=== PATIENT | male | born 1965 | race Caucasian/White ===

== ENCOUNTER 2018-01-20 07:15 | Inpatient (IN) | payer BC ==
[2018-02-12] MEDS ORDERED: GABAPENTIN 300 MG CAP PO ONE (06:11)
[2018-02-12] MEDS ORDERED: ceFAZolin 2 GM/DEXTROSE 100 ML IV ONE (06:11)
[2018-02-12] MEDS ORDERED: ACETAMINOPHEN 500 MG TAB PO ONE (06:11)
[2018-02-12] MEDS ORDERED: LR 1,000 ML IV ONE (06:12)
[2018-02-12] MEDS ORDERED: LIDOCAINE 1% 2 ML INJ ID PRN (06:12)
--- NOTE | 2018-02-12 06:29 | PDHPUP ---
History & Physical Update H&P update statement: This history and physical update is based on an assessment of the patient which was completed after admission or registration (within 24 hours), but prior to the surgery/procedure. H&P update: H&P reviewed & patient examined, no change in patient's condition since H&P completed
[2018-02-12] MEDS ORDERED: GABAPENTIN 300 MG CAP ONE (06:32)
[2018-02-12] MEDS ORDERED: ACETAMINOPHEN 500 MG TAB ONE (06:32)
[2018-02-12] MEDS ORDERED: MIDAZOLAM 2 MG/2 ML VIAL IVP ONE (07:10)
--- NOTE | 2018-02-12 07:11 | PDANEPAE ---
ANE Past Medical History - Cardiovascular History Hx Hypertension: Yes Hx Arrhythmias: No Hx Chest Pain: No Hx Coronary Artery / Peripheral Vascular Disease: Yes Hx CHF / Valvular Disease: No Hx Palpitations: No Cardiovascular History Comment: [place] 05/2010. STENT - Pulmonary History Hx COPD: No Hx Asthma/Reactive Airway Disease: No Hx Recent Upper Respiratory Infection: No Hx Oxygen in Use at Home: No Hx Sleep Apnea: No Sleep Apnea Screening Result - Last Documented: Positive - Neurologic History Hx Cerebrovascular Accident: No Hx Seizures: No Hx Dementia: No - Endocrine History Hx Diabetes: No - Renal History Hx Renal Disorders: No - Liver History Hx Hepatic Disorders: No - Neurological & Psychiatric Hx Hx Neurological and Psychiatric Disorders: No - Cancer History Hx Cancer: No - Congenital Disorder History Hx Congenital Disorders: No - GI History Hx Gastrointestinal Disorders: No - Other Health History Other Health History: RT SHLDR TORN RTC - Chronic Pain History Chronic Pain: Yes (CERVICAL NECK AND RT ARM) - Surgical History Prior Surgeries: CERVICAL FUSION. LT SHLDR SCOPE RTC/LABRUM/BICEP ANE Review of Systems Review of Systems: - Exercise capacity METS (RN): 4 METS ANE Patient History - Allergies Allergies/Adverse Reactions: Penicillins Allergy (Verified 02/12/18 07:05) Hives - Home Medications Home Medications: Amitriptyline HCl HS 12/18/17 [Last Taken 02/05/18] Atorvastatin Calcium DAILY 12/18/17 [Last Taken 02/12/18] Metoprolol Tartrate DAILY 12/18/17 [Last Taken 02/12/18] Paxil DAILY 12/18/17 [Last Taken 02/12/18] - NPO status NPO Since - Liquids (Date): 02/11/18 NPO Since - Liquids (Time): 19:00 NPO Since - Solids (Date): 02/11/18 NPO Since - Solids (Time): 19:00 - Smoking Hx Smoking Status: Former smoker ANE Labs/Vital Signs - Labs Result Diagrams: 02/12/18 06:55 - Vital Signs Blood Pressure: 145/86 Heart Rate: 59 Respiratory Rate: 15 O2 Sat (%): 95 Height: 180.34 cm Weight: 124.738 kg ANE Physical Exam - Airway Neck exam: decreased ROM Mallampati Score: Class 2 Mouth exam: normal dental/mouth exam - Pulmonary Pulmonary: no respiratory distress - Cardiovascular Cardiovascular: regular rate and rhythym - ASA Status ASA Status: III ANE Anesthesia Plan Anesthesia Plan: general endotracheal anesthesia
[2018-02-12] MEDS ORDERED: THROMBIN (BOVINE) 5,000 UNIT VIAL TP ONE (07:12)
[2018-02-12] MEDS ORDERED: BUPIVACAINE/EPI 0.25% 30 ML SDV ONE (07:12)
[2018-02-12] MEDS ORDERED: BACITRACIN 50,000 UNITS/10 ML SYR IRR ONE (07:12)
[2018-02-12 07:17] LABS: PLATELET COUNT 162 10^3/uL (150-400)
[2018-02-12] MEDS ORDERED: PROPOFOL/EMULSION 500 MG/50 ML BOTTLE IV ONE ×3 (07:18→09:30)
[2018-02-12] MEDS ORDERED: REMIFENTANIL HCL 1 MG VIAL ONE (07:19)
[2018-02-12] MEDS ORDERED: fentaNYL 250 MCG/5 ML INJ ONE (07:19)
[2018-02-12] MEDS ORDERED: CHLORHEXIDINE GLUC HIBICLENS 118 ML BTL TP ONE (07:53)
[2018-02-12] MEDS ORDERED: fentaNYL 100 MCG/2 ML INJ ONE ×3 (08:02→11:38)
[2018-02-12] MEDS ORDERED: GLYCOPYRROLATE 0.2 MG/1 ML VIAL ONE (08:10)
[2018-02-12] MEDS ORDERED: EPINEPHrine 1 MG/ML INJ ONE (09:26)
[2018-02-12] MEDS ORDERED: BUPIVACAINE 0.25% 30 ML SDV ONE (09:26)
[2018-02-12] MEDS ORDERED: REMIFENTANIL HCL 2 MG VIAL ONE (09:29)
[2018-02-12] MEDS ORDERED: PROPOFOL 200 MG/20 ML VIAL ONE (09:31)
[2018-02-12] MEDS ORDERED: ceFAZolin 1 GM VIAL ONE (10:24)
[2018-02-12] MEDS ORDERED: THROMBIN (BOVINE) 20,000 UNIT SPRAY TP ONE (10:35)
[2018-02-12] MEDS ORDERED: ePHEDrine SULFATE 25 MG/5 ML SYR ONE (10:37)
[2018-02-12] MEDS ORDERED: PROMETHAZINE HCL 25 MG/ML INJ IVP PRN (11:08)
[2018-02-12] MEDS ORDERED: LABETALOL HCL 5 MG/ML 20 ML MDV IVP PRN (11:08)
[2018-02-12] MEDS ORDERED: NALOXONE HCL 0.4 MG/ML INJ IVP PRN ×2 (11:08→11:15)
[2018-02-12] MEDS ORDERED: LR 500 ML IV PRN (11:08)
[2018-02-12] MEDS ORDERED: ONDANSETRON 4 MG/2 ML VIAL IVP PRN ×2 (11:08→11:15)
[2018-02-12] MEDS ORDERED: DEXAMETHASONE 4 MG/ML VIAL ONE (11:09)
[2018-02-12] MEDS ORDERED: ONDANSETRON 4 MG/2 ML VIAL ONE (11:09)
[2018-02-12] MEDS ORDERED: ONDANSETRON DISINTEGRATING 4 MG TAB PO PRN (11:15)
[2018-02-12] MEDS ORDERED: LACTULOSE 20 GM/30 ML UDCUP PO PRN (11:15)
[2018-02-12] MEDS ORDERED: morphINE PCA 30 MG/30 ML PCA IV PRN (11:15)
[2018-02-12] MEDS ORDERED: diphenhydrAMINE 25 MG CAP PO PRN (11:15)
[2018-02-12] MEDS ORDERED: BISACODYL 10 MG SUPP PR PRN (11:15)
[2018-02-12] MEDS ORDERED: MAGNESIUM HYDROXIDE 30 ML UDCUP PO PRN (11:15)
[2018-02-12] MEDS ORDERED: NS 1,000 ML IV SCH (11:15)
--- NOTE | 2018-02-12 11:23 | GOP ---
DATE OF OPERATION: 02/12/2018 SURGEON: Sam Amaral MD NEUROSURGEON: Sam Amaral MD. AND DRYING SUPERVISOR COOKING CASING: Sage Murillo PA-C. ANESTHESIA: General endotracheal. 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 Possible C6-7 pse udoarthrosis. POSTOPERATIVE DIAGNOSIS: Severe cervical spondylitic myelopathy with C5-6 adjacent level degeneratio n and disk space collapse with spinal canal compromise and spinal cord compression. Possible C6-7 ps eudoarthrosis. PROCEDURE PERFORMED: Removal of C6-7 anterior cervical plate with C5-6 complete anterior cervical di skectomy and arthrodesis with a 12 mm structural PEEK interbody spacer and local autograft. Placemen t of a C5 through C7 anterior cervical plate. Exploration of spinal fusion, C6-7. FINDINGS: ESTIMATED BLOOD LOSS: Trace. INDICATIONS: The patient is a 52-year-old man who underwent a C6-7 anterior cervical diskectomy and arthrodesis with plating approximately 10 months ago who has severe adjacent level degeneration, iliana l compromise, spinal cord compression, and progressive myelopathic signs on clinical examination. He presents now for surgical decompression and stabilization at the adjacent level and removal of the p late at C6-7 with exploration of the spinal fusion. DESCRIPTION OF PROCEDURE: After informed consent was obtained, the patient was taken to the operatin g room and placed in the supine position with the head in the halter retractor system. The anterior cervical region was prepped and draped in a sterile fashion. After fluoroscopic localization of the correct level, the subcutaneous and intramuscular tissues were infiltrated with local anesthesia. A prior horizontal incision was carefully opened and carried down to the platysmal layer, which was the n incised using monopolar electrocautery and carried in the avascular plane between the sternocleidom astoid and carotid sheath laterally and the strap muscles, trachea, and esophagus medially down to th e prevertebral fascia, which was carefully incised with Metzenbaum scissors. The C5-6 and C6-7 inter spaces were identified and re-verified using intraoperative fluoroscopy. The C6-7 plate was carefull y removed, and the rostral screws were noted to be loose. A Herrera was used to carefully manipulate th e interspace, and it appeared to have some slight movement consistent with an early pseudoarthrosis. I felt that it was safer for the patient to leave that in place and perform a posterior cervical fus ion after completing this anterior part. The distraction pins were inserted in the C5-6 level, and t he osteophytes removed and harvested for local autograft. A complete diskectomy was then performed w ith preparation of the endplates and removal of posterior longitudinal ligament. Bilateral foraminot omies were performed, and meticulous hemostasis was achieved. The posterior osteophytes were also re moved along with the disk in order to thoroughly decompressed the canal. The wound was then copiousl y irrigated, and after preparation of the endplates, a 12 mm structural PEEK interbody spacer packed with local autograft in the center was placed under fluoroscopic image guidance at the C5-6 level. T he distraction was removed, and an appropriately sized 41 mm LnK CastleLoc-P anterior cervical plate was then placed and secured from C5 through C7 with self-drilling screws. Following re-verification of good position of the plate screws and interbody spacers using biplanar fluoroscopy, a drain was pl aced. The subcutaneous and intramuscular tissues were re-infiltrated with local anesthesia, and the wound was closed in a layered fashion using interrupted Vicryl suture, followed by Steri-Strips on th e skin. The patient was repositioned for the posterior portion of the operation. COMPLICATIONS: None. /[id number]/MODL
--- NOTE | 2018-02-12 11:32 | PDMN ---
Medical Necessity Medical necessity: MCG: S330 posterior cervical fusion 2 days: OP: C5/6 ACDF , with Posterior fusion , exploration of C6/7 spinal fusion surg fax scanned : (1 day) for CPT 82369, 63491, 24657, 46849, 53614, [id number], 28624
--- NOTE | 2018-02-12 11:33 | GOP ---
DATE OF OPERATION: 02/12/2018 SURGEON: Sam Amaral MD NEUROSURGEON: Sam Amaral MD. APPLE PRESS OPERATOR: MISAEL Wills. ANESTHESIA: General endotracheal. 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 Possible C6-7 pseudoarthrosis. 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 Possible C6-7 pseudoarthrosis. PROCEDURE PERFORMED: C5 through C7 posterior segmental (lateral mass screw) fixation with C5 through C7 posterolateral fusion with local autograft and bone morphogenic protein. Use of intraoperative microscopy, fluoroscopy, and intraoperative neurophysiologic testing. FINDINGS: ESTIMATED BLOOD LOSS: Trace. INDICATIONS: The patient is a 52-year-old man who underwent a C6-7 anterior cervical diskectomy and arthrodesis with plating approximately 10 months ago who has severe adjacent level degeneration, canal compromise, spinal cord compression, and progressive myelopathic signs on clinical examination. He presents now for surgical decompression and stabilization at the adjacent level and removal of the plate at C6-7 with exploration of the spinal fusion. DESCRIPTION OF PROCEDURE: After the anterior portion of procedure was completed , the patient was repositioned prone with the head in the [place] balling head tender. The posterior cervical region was prepped and draped in a sterile fashion. After fluoroscopic localization of the correct levels as best we could given the patients body habitus the subcutaneous and intramuscular tissues were infiltrated with local anesthesia. A midline linear incision was then created from approximately C5 through C7. This was carried down to the fascial layer, which was then incised using monopolar electrocautery and carried to the subcostal plane along the spinous processes and out the lamina bilaterally. Following re-verification of the correct levels as best we could, dissection was carried out over the facet joints. Note that this patient is a very large man with a huge neck and we utilized multiple angles to verify the levels as best we could as well as using the stiffness of the segments given that C5-7 had a plate anteriorly already. The facets were drilled out at C5-6 and C6-7 and mass screw fixation was placed at the C5, C6, and C7 levels bilaterally. Each individual screw was tested neurophysiologically with monopolar electrostimulation and interpretation of the potentials by the surgeon. Following this, verification of good position was performed using biplanar fluoroscopy. It was again extremely difficult to visualize anything but we did the best we could and even though I was not 100% confident of good screw placement I thought it in the patient's best interest to leave the screws as they were. The rods were then placed and secured. The lamina and facet joints were thoroughly drilled out, and the local autograft along with bone morphogenic protein was placed out laterally for a posterolateral fusion from C5 through C7. A drain was placed. The subcutaneous and intramuscular tissues were re-infiltrated with local anesthesia, and the wound was closed in a layered fashion using interrupted Vicryl sutures followed by Steri-Strips on the skin. COMPLICATIONS: None. DISPOSITION: The patient is currently in the process of being repositioned for extubation. /[id number]/MODL MTDD
[2018-02-12] MEDS ORDERED: LABETALOL HCL 5 MG/ML 20 ML MDV ONE (11:38)
[2018-02-12] MEDS: fentaNYL 100 MCG/2 ML INJ IVP PRN ×2 (11:43→11:48)
--- NOTE | 2018-02-12 11:49 | POSTANESTH ---
Post Anesthetic Evaluation Cardiovascular Status: Normal, Stable Respiratory Status: Normal, Stable Level of Consciousness/Mental Status: Can Participate in Eval Pain Control: Adequate, Prn Tx Ordered Nausea/Vomiting Control: Adequate, Prn Tx Ordered Complications Possibly Related to Anesthesia: None Noted
--- NOTE | 2018-02-12 12:03 | SOAPPROG ---
SOAP Progress Note Assessment/Plan: Assessment: 52 yo M sp C6/7 plate removal, C5/6 ACDF with C5-7 plating, C5-7 posterior cervical fusion Plan: stable to 3N hard collar PT/OT please call with neuro changes 02/12/18 12:01 Subjective: + neck pain, no arm pain Objective: Vital Signs Temp Pulse Resp BP Pulse Ox 37.0 C 59 L 15 145/86 H 95 02/12/18 06:15 02/12/18 07:10 02/12/18 07:10 02/12/18 07:10 02/12/18 07:10 Laboratory Results 02/12/18 06:55 somnolent PERRL, EOMI 5/5 + light touch ICD10 Worksheet Patient Problems: Problems Problem Status Onset Fusion of spine of cervical region Acute - ICD10 Problem Qualifiers (1) Fusion of spine of cervical region
[2018-02-12] MEDS ORDERED: METHOCARBAMOL 750 MG TAB ONE (12:20)
[2018-02-12] MEDS: METHOCARBAMOL 750 MG TAB PO PRN ×3 (12:20→22:27)
[2018-02-12] MEDS ORDERED: oxyCODONE IR 5 MG TAB ONE (12:26)
[2018-02-12] MEDS: oxyCODONE IR 5 MG TAB PO PRN ×4 (12:27→22:28)
[2018-02-12] MEDS: ceFAZolin 2 GM/DEXTROSE 100 ML IV SCH ×2 (13:20→21:34)
[2018-02-12] MEDS: POLYETHYLENE GLYCOL 3350 17 GM PKT PO SCH ×2 (16:16→21:33)
[2018-02-12] MEDS: AMITRIPTYLINE HCL 10 MG TAB PO SCH (21:31)
[2018-02-12] MEDS: METOPROLOL TARTRATE 25 MG TAB PO SCH (21:31)
[2018-02-12] MEDS: SENNOSIDES/DOCUSATE SODIUM TAB PO SCH (21:31)
[2018-02-12] MEDS: FAMOTIDINE 20 MG TAB PO SCH (21:33)
[2018-02-13] MEDS: oxyCODONE IR 5 MG TAB PO PRN ×4 (02:40→18:51)
[2018-02-13] MEDS: METHOCARBAMOL 750 MG TAB PO PRN ×3 (04:42→20:59)
[2018-02-13 06:26] LABS: PLATELET COUNT 163 10^3/uL (150-400)
--- NOTE | 2018-02-13 07:49 | NEUSURGPN ---
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 at bedside. Snored a lot overnight which is unusual for him Objective: AAOx3 NAD VSS MAEx4 Motor 5/ BUE Incisions dressed cdi KIMBERLY in place Urinary Catheter in Place: No - Physician Discussed Patient with : Munir Patient Seen by : Munir Neurosurgery Physical Exam - Vitals, I&O, Labs I and O 02/12/18 02/13/18 02/14/18 05:59 05:59 05:59 Intake Total 3105 Output Total 4440 Balance -1335 Weight 124.738 kg Intake: Oral (ml) 1000 IV Intake (ml) 2000 IV Infused (ml) 105 ceFAZolin 2 GM/DEXTROSE 105 100 ml @ 200 mls/hr IV Q8HRS [facility] Rx#:[id number] Output: Urine (ml) 4100 Urinal 4100 Estimated Blood Loss (ml) 300 KIMBERLY Drain Output (ml) 40 #1 Left Anterior Neck 40 Other: Intake Quantity Yes Sufficient Number of Voids Urinal 1 Vital Signs Temp Pulse Resp BP Pulse Ox 36.8 C 76 14 145/73 H 90 L 02/13/18 07:43 02/13/18 07:43 02/13/18 07:43 02/13/18 07:43 02/13/18 07:43 Laboratory Results 02/13/18 04:54 02/13/18 04:54 ICD10 Worksheet Patient Problems: Problems Problem Status Onset Fusion of spine of cervical region Acute
[2018-02-13] MEDS: PARoxetine HCL 20 MG TAB PO SCH (08:57)
[2018-02-13] MEDS: SENNOSIDES/DOCUSATE SODIUM TAB PO SCH ×2 (08:57→20:58)
[2018-02-13] MEDS: ATORVASTATIN CALCIUM 10 MG TAB PO SCH (08:57)
[2018-02-13] MEDS: POLYETHYLENE GLYCOL 3350 17 GM PKT PO SCH ×3 (08:57→20:58)
[2018-02-13] MEDS: FAMOTIDINE 20 MG TAB PO SCH ×2 (08:57→20:59)
[2018-02-13] MEDS: METOPROLOL TARTRATE 25 MG TAB PO SCH ×2 (08:58→21:01)
[2018-02-13] MEDS: DIAZEPAM 5 MG TAB PO PRN ×2 (10:10→17:54)
--- NOTE | 2018-02-13 12:13 | ASMTCMCOM ---
CM Note CM Note Notes: Met with patient and family to review any d/c needs. Patient is well prepared for his d/c home. They have all needed DME - will be around to assist with needs. They decline the need for HHC at this time. Explained that CM is available should something change. Therapy has cleared patient for home. Plan: Likely home independent. Date Signed: 02/13/2018 11:56 AM Electronically Signed By:Mary Martinez RN
[2018-02-13] MEDS: AMITRIPTYLINE HCL 10 MG TAB PO SCH (20:59)
[2018-02-14] MEDS: DIAZEPAM 5 MG TAB PO PRN ×2 (00:07→21:07)
[2018-02-14] MEDS: oxyCODONE IR 5 MG TAB PO PRN ×4 (03:22→17:58)
[2018-02-14] MEDS: METHOCARBAMOL 750 MG TAB PO PRN ×5 (03:27→23:39)
[2018-02-14] MEDS: METOPROLOL TARTRATE 25 MG TAB PO SCH ×2 (09:00→21:06)
[2018-02-14] MEDS: SENNOSIDES/DOCUSATE SODIUM TAB PO SCH ×2 (09:01→21:52)
[2018-02-14] MEDS: PARoxetine HCL 20 MG TAB PO SCH (09:01)
[2018-02-14] MEDS: FAMOTIDINE 20 MG TAB PO SCH ×2 (09:01→21:07)
[2018-02-14] MEDS: POLYETHYLENE GLYCOL 3350 17 GM PKT PO SCH ×3 (09:02→21:52)
[2018-02-14] MEDS: ATORVASTATIN CALCIUM 10 MG TAB PO SCH (09:13)
--- NOTE | 2018-02-14 14:35 | NEUSURGPN ---
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 Valium added yesterday and doing ice as needed Post op xrays show good hardware placement TEDs SCDs lovenox POD#3 hard collar Pt d/w Dr Keshawn HARRIS X1- will leave for today RT cs for need for CPAP but increased oxygen at night as only need please call with neuro changes Subjective: Pt in chair eating breakfast. Sore throat but swallowing well. Has mostly scapular pain that is the worst of his complaints. Objective: AAOx3 NAD VSS MAEx4 Motor 5/ BUE Incisions dressed cdi KIBMERLY in place - Physician Discussed Patient with : Munir Neurosurgery Physical Exam - Vitals, I&O, Labs I and O 02/13/18 02/14/18 02/15/18 05:59 05:59 05:59 Intake Total 3105 500 Output Total 4440 475 Balance -1335 25 Weight 124.738 kg 124.738 kg Intake: Oral (ml) 1000 500 IV Intake (ml) 2000 IV Infused (ml) 105 ceFAZolin 2 GM/DEXTROSE 105 100 ml @ 200 mls/hr IV Q8HRS [facility] Rx#:[id number] Output: Urine (ml) 4100 450 Urinal 4100 450 Estimated Blood Loss (ml) 300 KIMBERLY Drain Output (ml) 40 25 #1 Left Anterior Neck 40 25 Other: Intake Quantity Yes Yes Sufficient Number of Voids Urinal 1 Vital Signs Temp Pulse Resp BP Pulse Ox 36.5 C 79 16 177/95 H 95 02/14/18 08:00 02/14/18 08:00 02/14/18 08:00 02/14/18 09:23 02/14/18 08:00 Laboratory Results 02/13/18 04:54 02/13/18 04:54 ICD10 Worksheet Patient Problems: Problems Problem Status Onset Fusion of spine of cervical region Acute
[2018-02-14] MEDS: AMITRIPTYLINE HCL 10 MG TAB PO SCH (21:08)
[2018-02-15] MEDS: DIAZEPAM 5 MG TAB PO PRN (03:50)
[2018-02-15] MEDS: oxyCODONE IR 5 MG TAB PO PRN ×4 (06:08→21:04)
[2018-02-15] MEDS: ENOXAPARIN 40 MG/0.4 ML SYR SC SCH (08:46)
[2018-02-15] MEDS: METHOCARBAMOL 750 MG TAB PO PRN (08:46)
[2018-02-15] MEDS: ATORVASTATIN CALCIUM 10 MG TAB PO SCH (08:47)
[2018-02-15] MEDS: POLYETHYLENE GLYCOL 3350 17 GM PKT PO SCH ×3 (08:47→20:52)
[2018-02-15] MEDS: METOPROLOL TARTRATE 25 MG TAB PO SCH ×2 (08:47→20:51)
[2018-02-15] MEDS: PARoxetine HCL 20 MG TAB PO SCH (08:47)
[2018-02-15] MEDS: FAMOTIDINE 20 MG TAB PO SCH ×2 (08:47→20:51)
[2018-02-15] MEDS: SENNOSIDES/DOCUSATE SODIUM TAB PO SCH ×2 (08:47→20:52)
--- NOTE | 2018-02-15 08:49 | NEUSURGPN ---
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 Valium helping at night for sleep Post op xrays show good hardware placement TEDs SCDs lovenox POD#3 hard collar- can take off to shower Can shower today Pt d/w Dr Keshawn HARRIS X1- will remove today Dispo- Possibly can be discharged later today but patient still requiring a lot of oxygen at night so could please call with neuro changes Subjective: Pt in chair eating breakfast. Sore throat but swallowing well. Has mostly scapular pain that is the worst of his complaints. Objective: AAOx3 NAD VSS MAEx4 Motor 5/ BUE Incisions dressed cdi KIMBERLY in place- minimal serosang in bulb - Physician Discussed Patient with : Munir Neurosurgery Physical Exam - Vitals, I&O, Labs I and O 02/14/18 02/15/18 02/16/18 05:59 05:59 05:59 Intake Total 500 680 Output Total 475 Balance 25 680 Weight 124.738 kg Intake: Oral (ml) 500 680 Output: Urine (ml) 450 Urinal 450 KIMBERLY Drain Output (ml) 25 #1 Left Anterior Neck 25 Other: Intake Quantity Yes Yes Sufficient Number of Stools Urinal 1 Vital Signs Temp Pulse Resp BP Pulse Ox 36.8 C 72 16 144/89 H 96 02/15/18 08:00 02/15/18 08:00 02/15/18 08:00 02/15/18 08:00 02/15/18 08:00 Laboratory Results 02/13/18 04:54 02/13/18 04:54 ICD10 Worksheet Patient Problems: Problems Problem Status Onset Fusion of spine of cervical region Acute
[2018-02-15] MEDS ORDERED: METHOCARBAMOL 750 MG TAB PO PRN (08:53)
[2018-02-15] MEDS: METHOCARBAMOL 500 MG TAB PO PRN ×3 (12:01→21:21)
[2018-02-15] MEDS: AMITRIPTYLINE HCL 10 MG TAB PO SCH (20:52)
[2018-02-16] MEDS: DIAZEPAM 5 MG TAB PO PRN (01:30)
[2018-02-16 08:03] VITALS: BP 133/89
--- NOTE | 2018-02-16 08:07 | NEUSURGPN ---
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 Valium helping at night for sleep Post op xrays show good hardware placement TEDs SCDs lovenox POD#3 hard collar- can take off to shower Ok to shower Dispo- Ok to dc home with oxygen. Patient will follow up with PCP regarding O2 needs. Please call neurosurgery with any questions/concerns Subjective: posterior neck pain Objective: AxO x4 MAEx4 5/5 BUE, BLE Anterior incision CDI with steri strip Posterior incision mild redness/swelling-steri strips in place with 4x4 dressing Neuro Check Frequency: per routine Urinary Catheter in Place: No - Physician Discussed Patient with : Munir Neurosurgery Physical Exam - Vitals, I&O, Labs I and O 02/15/18 02/16/18 02/17/18 05:59 05:59 05:59 Intake Total 680 450 Balance 680 450 Intake: Oral (ml) 680 450 Other: Intake Quantity Yes Yes Sufficient Number of Voids Toilet 2 Number of Stools Toilet 1 Urinal 1 Vital Signs Temp Pulse Resp BP Pulse Ox 36.8 C 83 12 133/89 H 95 02/16/18 08:00 02/16/18 08:00 02/16/18 08:00 02/16/18 08:00 02/16/18 08:00 Laboratory Results 02/13/18 04:54 02/13/18 04:54 ICD10 Worksheet Patient Problems: Problems Problem Status Onset Fusion of spine of cervical region Acute
--- NOTE | 2018-02-16 08:17 | PDIAF ---
- Diagnosis Diagnosis: S/P anterior posterior cervical fusion Code Status: Full Code - Medication Management Discharge Medications: electronically signed and located in the Home Medication List. PICC Care - Routine: N/A - Orders Home Care Face to Face: Portable oxygen Oxygen: Home oxygen Diet Recommendation: no restrictions on diet Diet Texture: Regular Texture Diet Additional Instructions: No bending or twisting of neck Do not lift greater than 10 pounds Wear hard collar at all times Change posterior dressing twice daily with dry dressing only Call office with questions/concerns [phone] - Follow Up Care Current Providers and Referrals: MARA HOLCOMB [Primary Care Provider] - Sam Amaral MD [Medical Doctor] - follow up in 2 weeks
--- NOTE | 2018-02-16 09:45 | PDFACE2FAC ---
Face to Face Encounter 1. I certify that this patient is under my care and that I, or a nurse practitioner or physician's assistant district attorney working with me, had a [id number] encounter that meets the physician [id number] encounter requirements with this patient on 02/16/18. 2. I certify that based on my findings, the following services are medically necessary home health services: [X Nursing] [X Physical Therapy] [X Speech-Language Pathology] 3. The medical condition and clinical findings that support the need for specialized skills, knowledge and judgement of the above services are: [Home oxygen ] 4. I certify this patient is homebound* because [the patient's condition restricts their ability to leave their home except with the assistance of another individual or the aid of a supportive device.] I certify that this patient is confined to his/her home and needs intermittent halfway care, physical and/or speech therapy. This patient is under my care and I have authorized home health services. * Homebound is defined by Medicare as follows: absences from home require considerable and tacking effort and or for medical reasons or temple services or are infrequent or of short duration when for other reasons*.
[2018-02-16] MEDS: oxyCODONE IR 5 MG TAB PO PRN (09:46)
[2018-02-16] MEDS: ATORVASTATIN CALCIUM 10 MG TAB PO SCH (09:47)
[2018-02-16] MEDS: FAMOTIDINE 20 MG TAB PO SCH (09:47)
[2018-02-16] MEDS: METOPROLOL TARTRATE 25 MG TAB PO SCH (09:47)
[2018-02-16] MEDS: PARoxetine HCL 20 MG TAB PO SCH (09:48)
[2018-02-16] MEDS: POLYETHYLENE GLYCOL 3350 17 GM PKT PO SCH (09:48)
[2018-02-16] MEDS: SENNOSIDES/DOCUSATE SODIUM TAB PO SCH (09:48)
[2018-02-16] MEDS: ENOXAPARIN 40 MG/0.4 ML SYR SC SCH (09:49)
--- NOTE | 2018-02-16 11:11 | ASMTCMCOM ---
CM Note CM Note Notes: Pt medically stable for d/c, no CM d/c needs identified. Date Signed: 02/16/2018 11:10 AM Electronically Signed By:LUBA Cagle
--- NOTE | 2018-02-16 11:14 | ASMTLACE ---
LACE Length of stay for Answers: 4-6 days current admission Acuity / Level of Answers: Yes Care: Did the patient have an inpatient admission? Comorbidities - select Answers: Coronary Artery Disease all that apply Opioid dependence / Chronic pain Previous myocardial infarction Other Notes: HTN # of Emergency department Answers: 0 visits in the last 6 months Score: 15 Date Signed: 02/16/2018 11:13 AM Electronically Signed By:LUBA Cagle
--- NOTE | 2018-02-23 13:50 | GDS ---
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 DISCHARGE DIAGNOSIS: Status post C6-7 plate removal, C5-6 anterior cervical diskectomy and fusion, a nd a C5 through C7 posterior cervical fusion. HISTORY/PHYSICAL: Please see admission history and physical. HOSPITAL COURSE: The patient is a 52-year-old male who presented with neck pain and progressive uppe r extremity radicular symptoms. He was found to have stenosis at C6-7 and a possible underlying C6-7 nonunion. He was taken to the operating room on 02/12/2018, where he underwent a C6-7 plate removal , a C5-6 anterior cervical diskectomy and fusion with C5 to C7 plating, and a C5 through C7 posterior cervical instrumentation and fusion. There were no intraoperative complications, and he was admitte d to the floor for observation. On the floor, he was tolerating a regular diet, and his pain was con trolled with p.o. pain medications. He was discharged home in stable condition on 02/16/2018, with [facility]. Patient was discharged with cervical fusion instructions and recommended he return for a neurosurgical followup appointment in 10-14 days. /[id number]/MODL
== END 2018-02-16 11:10 | disposition home or self-care (01) | DRG 454 ==
LOC: F3N 02-12 05:48
PROVIDERS: ADMIT Neurological Surgery; ATTEND Neurological Surgery
DX: M45.2 Ankylosing spondylitis of cervical region (principal); M50.022 Cervical disc disorder at C5-C6 level with myelopathy; M96.0 Pseudarthrosis after fusion or arthrodesis; I10 Essential (primary) hypertension; I25.2 Old myocardial infarction; Z95.5 Presence of coronary angioplasty implant and graft; G47.30 Sleep apnea, unspecified
CPT/HCPCS: 97116-GP; 97161-GP; 97165-GO; 97535-GO; C1713; J0171; J0690; J1100; J1650; J2250; J2270; J2405; J2704; J3010